=== PATIENT | female | born 1945 | race African-American/Black ===

== ENCOUNTER 2023-08-24 23:30 | Inpatient (IN) | payer MEDICARE, MEDICAID ==
[~2023-08-24] VITALS: Ht 157.5 cm; Wt 53.4 kg
[2023-08-25 00:31] LABS: Rapid Influenza A Negative (Negative); Rapid Influenza B Negative (Negative)
[2023-08-25 00:32] LABS: COVID19 ANTIGEN SOFIA FIA NEGATIVE (NEGATIVE)
[2023-08-25 00:38] LABS: Urine Bacteria FEW /hpf (None Seen); Urine Blood Negative /uL (Negative); Urine Clarity Clear (Clear); Urine Color Yellow (Yellow); Urine Hyaline Cast FEW /lpf (0 - 2); Urine Mucus FEW (None Seen); Urine Protein, UAD TRACE (Negative); Urine Specific Gravity 1.024 (1.001-1.035); Urine WBC 5 /hpf (0 - 5); Urine pH 5.5 (5.0-8.0)
[2023-08-25 00:57] LABS: Basophils # (auto) 0.1 10 ^3/uL (0-0.2); Basophils % (auto) 0.7 % (0.0-2.0); Eosinophils # (auto) 0.3 10 ^3/uL (0-0.8); Hemoglobin 12.2 g/dL (12.2-16.2); Lymphocytes # (auto) 1.6 10 ^3/uL (0.4-5.4); Neutrophils # (auto) 6.5 10 ^3/uL (1.6-8.6)
[2023-08-25 00:58] LABS: Eosinophils % (auto) 3.3 % (0.0-7.0); Hematocrit 37.9 % (36.0-46.0); Lymphocytes % (auto) 16.6 % (10.0-50.0); Mean Corpuscular Hemoglobin 28.1 pg (28.0-32.0); Mean Corpuscular Hgb Conc. 32.3 g/dL (32.0-36.0); Mean Corpuscular Volume 87.1 fL (80.0-100.0); Monocytes # (auto) 0.9 10 ^3/uL (0-1.3); Monocytes % (auto) 9.8 % (0.0-12.0); Neutrophils % (auto) 69.6 % (37.0-80.0); Red Blood Cells 4.35 10^6/uL (4.0-5.20); Red Cell Distribution Width 15.7 % (11.8-14.3); White Blood Cell 9.4 10^3/uL (4.4-10.8)
[2023-08-25 01:14] LABS: Alanine Aminotransferase 13 U/L (7-40); Albumin 4.7 g/dL (3.2-4.8); Alkaline Phosphatase 66 U/L (46-116); Anion Gap 8 (5-15); Aspartate Aminotransferase 23 U/L (13-40); BUN/Creatinine Ratio 17.2 (10.0-20.0); Bilirubin, Total 0.6 mg/dL (0.2-1.0); Blood Urea Nitrogen 17 mg/dL (9-23); Calcium 10.5 mg/dL (8.7-10.4); Carbon Dioxide 24 mmol/L (20-30); Chloride 101 mmol/L (98-107); Glucose 110 mg/dL (74-106); Potassium 4.3 mmol/L (3.5-5.1); Sodium 133 mmol/L (136-145); Total Protein 8.3 g/dL (5.7-8.2)
[2023-08-25 01:16] LABS: INR 1.17 (0.9-1.15); Prothrombin Time 12.2 sec (9.3-11.8)
[2023-08-25 01:22] LABS: Partial Thromboplastin Time < 20.0 SEC (24.5-34.5)
[2023-08-25] MEDS ORDERED: ASPirin 81 mg TAB PO ONE (03:00)
[2023-08-25] MEDS ORDERED: PANTOPRAZOLE 40 MG/10 ML VIAL INJ IV ONE (03:00)
[2023-08-25] MEDS ORDERED: FUROSEMIDE 20 MG/2 ML VIAL IV ONE (03:00)
[2023-08-25] MEDS ORDERED: ACETAMINOPHEN 325 MG TAB PO ONE (03:00)
[2023-08-25 04:41] VITALS: PULSE 92; RESP 16; O2SAT 100
[2023-08-25] MEDS ORDERED: ACETAMINOPHEN 325 MG TAB PO PRN (09:15)
[2023-08-25] MEDS ORDERED: ONDANSETRON HCL 4 MG/2 ML VIAL IV PRN (09:15)
[2023-08-25] MEDS ORDERED: HYDROcodone-ACET 5/325MG TAB PO PRN (09:15)
[2023-08-25] MEDS ORDERED: DOCUSATE SOD 100 MG CAP PO PRN (09:15)
[2023-08-25] MEDS ORDERED: CARVEDILOL 3.125 MG TAB PO SCH (10:00)
[2023-08-25] MEDS ORDERED: FAMOTIDINE (10MG/ML) 2ML VL IV SCH (10:00)
[2023-08-25] MEDS ORDERED: FUROSEMIDE 20 MG/2 ML VIAL IV SCH (10:00)
[2023-08-25] MEDS ORDERED: MORPHINE SULFATE INJ 2 MG/ml SYRG IV PRN (10:30)
[2023-08-25] MEDS ORDERED: NITROGLYCERIN 0.4 MG SL TAB SL PRN (10:30)
[2023-08-25] MEDS: ASPirin 81 mg TAB PO SCH (11:58)
[2023-08-25] MEDS: AZITHROMYCIN 500MG/ 250ML 250 ML IV SCH (12:43)
[2023-08-25] MEDS: SODIUM CHLOR 0.9% PF (SALINE LOCK) 10ML VIAL/SYR IV SCH ×2 (14:18→21:55)
[2023-08-25 17:28] VITALS: PULSE 98; RESP 17; O2SAT 98
[2023-08-25 17:32] VITALS: BP 122/55; PULSE 98; RESP 18; TEMP 97.7; O2SAT 99
[2023-08-25] MEDS ORDERED: METO-158 PO (18:33)
[2023-08-25] MEDS ORDERED: SPIR25TA8 PO (18:33)
[2023-08-25] MEDS ORDERED: SACU1TAB PO (18:33)
[2023-08-25] MEDS ORDERED: ASPI-498 PO (18:33)
[2023-08-25] MEDS ORDERED: NITR0.4S29 SL (18:33)
[2023-08-25] MEDS ORDERED: ATO40T PO (18:33)
[2023-08-25] MEDS ORDERED: AMLO1TAB22 PO (18:33)
[2023-08-25] MEDS: FUROSEMIDE 20 MG/2 ML VIAL IV SCH (18:48)
[2023-08-25 20:00] VITALS: PULSE 94; RESP 18; O2SAT 96
[2023-08-25 21:55] VITALS: BP 105/40
[2023-08-25] MEDS: SACUBITRIL-VALSARTAN 24mg/26mg TAB PO SCH (21:55)
[2023-08-25] MEDS: ATORVASTATIN 20 MG TAB PO SCH (21:55)
[2023-08-25 22:00] VITALS: BP 89/55; PULSE 50; RESP 17; TEMP 98.1; O2SAT 99
[2023-08-26] VITALS (7 sets, daily range): BP systolic 85–100; BP diastolic 45–60; PULSE 84–97; RESP 16–18; TEMP 97.7–98.2; O2SAT 97–100
[2023-08-26 05:49] LABS: Basophils # (auto) 0.1 10 ^3/uL (0-0.2); Basophils % (auto) 0.9 % (0.0-2.0); Eosinophils # (auto) 0.3 10 ^3/uL (0-0.8); Hematocrit 36.8 % (36.0-46.0); Lymphocytes % (auto) 15.4 % (10.0-50.0); Mean Corpuscular Hemoglobin 27.9 pg (28.0-32.0); Mean Corpuscular Hgb Conc. 32.6 g/dL (32.0-36.0); Mean Corpuscular Volume 85.4 fL (80.0-100.0); Monocytes # (auto) 0.8 10 ^3/uL (0-1.3); Monocytes % (auto) 12.1 % (0.0-12.0); Neutrophils # (auto) 4.5 10 ^3/uL (1.6-8.6); Neutrophils % (auto) 67.6 % (37.0-80.0); Red Cell Distribution Width 15.6 % (11.8-14.3); White Blood Cell 6.6 10^3/uL (4.4-10.8)
[2023-08-26] MEDS: SODIUM CHLOR 0.9% PF (SALINE LOCK) 10ML VIAL/SYR IV SCH ×3 (05:51→21:39)
[2023-08-26] MEDS: EMPAGLIFLOZIN 10 MG TAB PO SCH (05:51)
[2023-08-26] MEDS: FUROSEMIDE 20 MG/2 ML VIAL IV SCH ×2 (05:51→17:54)
[2023-08-26 06:09] LABS: Alanine Aminotransferase 13 U/L (7-40); Albumin 4.4 g/dL (3.2-4.8); Alkaline Phosphatase 57 U/L (46-116); Anion Gap 9 (5-15); Aspartate Aminotransferase 19 U/L (13-40); Bilirubin, Total 0.7 mg/dL (0.2-1.0); Blood Urea Nitrogen 16 mg/dL (9-23); Calcium 10.8 mg/dL (8.5-10.1); Carbon Dioxide 26 mmol/L (20-30); Chloride 102 mmol/L (98-107); Glucose 88 mg/dL (74-106); Potassium 4.2 mmol/L (3.5-5.1); Sodium 137 mmol/L (136-145); Total Protein 7.8 g/dL (5.7-8.2)
[2023-08-26] MEDS: ASPirin 81 mg TAB PO SCH (09:16)
[2023-08-26] MEDS: SACUBITRIL-VALSARTAN 24mg/26mg TAB PO SCH ×2 (09:17→21:35)
[2023-08-26] MEDS: ENOXAPARIN SOD 30 MG/0.3 ML SYRINGE SC SCH (09:18)
[2023-08-26] MEDS: AZITHROMYCIN 500MG/ 250ML 250 ML IV SCH (09:24)
[2023-08-26] MEDS: ATORVASTATIN 20 MG TAB PO SCH (21:35)
[2023-08-27 05:00] VITALS: BP 104/60; PULSE 91; RESP 18; TEMP 97.5; O2SAT 98
[2023-08-27] MEDS: FUROSEMIDE 20 MG/2 ML VIAL IV SCH ×2 (05:13→18:38)
[2023-08-27] MEDS: SODIUM CHLOR 0.9% PF (SALINE LOCK) 10ML VIAL/SYR IV SCH ×2 (05:13→14:00)
[2023-08-27 05:45] LABS: Chloride 102 mmol/L (98-107); Sodium 135 mmol/L (136-145)
[2023-08-27 05:46] LABS: Anion Gap 9 (5-15); Carbon Dioxide 24 mmol/L (20-30)
[2023-08-27 05:47] LABS: Calcium 10.9 mg/dL (8.5-10.1)
[2023-08-27 05:51] LABS: Glucose 95 mg/dL (74-106)
[2023-08-27 05:52] LABS: BUN/Creatinine Ratio 15.6 (10.0-20.0); Blood Urea Nitrogen 14 mg/dL (9-23)
[2023-08-27 06:06] LABS: Basophils # (auto) 0.1 10 ^3/uL (0-0.2); Basophils % (auto) 1.3 % (0.0-2.0); Eosinophils # (auto) 0.5 10 ^3/uL (0-0.8); Eosinophils % (auto) 7.3 % (0.0-7.0); Hematocrit 37.8 % (36.0-46.0); Hemoglobin 12.2 g/dL (12.2-16.2); Lymphocytes # (auto) 1.5 10 ^3/uL (0.4-5.4); Mean Corpuscular Hemoglobin 27.7 pg (28.0-32.0); Mean Corpuscular Hgb Conc. 32.3 g/dL (32.0-36.0); Mean Corpuscular Volume 85.8 fL (80.0-100.0); Monocytes % (auto) 14.8 % (0.0-12.0); Neutrophils # (auto) 3.5 10 ^3/uL (1.6-8.6); Neutrophils % (auto) 53.6 % (37.0-80.0); Nucleated Red Blood Cells % 0.1 %; Red Blood Cells 4.41 10^6/uL (4.0-5.20); Red Cell Distribution Width 15.5 % (11.8-14.3); White Blood Cell 6.4 10^3/uL (4.4-10.8)
[2023-08-27] MEDS: EMPAGLIFLOZIN 10 MG TAB PO SCH (06:36)
[2023-08-27 08:00] VITALS: BP 96/55; PULSE 77; RESP 17; TEMP 97.4; O2SAT 99
[2023-08-27 08:44] VITALS: BP 96/55; PULSE 91; RESP 17; TEMP 97.4; O2SAT 99
[2023-08-27] MEDS: ENOXAPARIN SOD 30 MG/0.3 ML SYRINGE SC SCH (09:26)
[2023-08-27] MEDS: AZITHROMYCIN 500MG/ 250ML 250 ML IV SCH (09:26)
[2023-08-27] MEDS: ASPirin 81 mg TAB PO SCH (09:27)
[2023-08-27] MEDS: SACUBITRIL-VALSARTAN 24mg/26mg TAB PO SCH (10:00)
[2023-08-27] MEDS ORDERED: FURO1TAB33 PO (11:12)
[2023-08-27 13:00] VITALS: BP 89/45; PULSE 89; RESP 16; TEMP 97.9; O2SAT 97
[2023-08-27 16:31] VITALS: BP 89/44; PULSE 94; RESP 14; TEMP 98.3; O2SAT 100
[2023-08-27 19:00] VITALS: BP 98/53; PULSE 94; RESP 17; TEMP 98.3; O2SAT 100
== END 2023-08-27 20:25 | disposition home or self-care (01) | DRG 137 ==
LOC: ER 23:30 → TELE 08-25 10:30 → TELE-CENTR 08-25 17:37
PROVIDERS: ADMIT Nurse Practitioner Family; ATTEND Internal Medicine Pulmonary Disease
DX: J15.69 Pneumonia due to other Gram-negative bacteria (principal); I21.A1 Myocardial infarction type 2; I50.43 Acute on chronic combined systolic (congestive) and diastolic (congestive) heart failure; I42.8 Other cardiomyopathies; I11.0 Hypertensive heart disease with heart failure; I95.9 Hypotension, unspecified; J15.8 Pneumonia due to other specified bacteria; I34.0 Nonrheumatic mitral (valve) insufficiency; Z20.822 Contact with and (suspected) exposure to COVID-19; I49.3 Ventricular premature depolarization; E78.5 Hyperlipidemia, unspecified; Z82.49 Family history of ischemic heart disease and other diseases of the circulatory system; Z90.710 Acquired absence of both cervix and uterus; Z88.2 Allergy status to sulfonamides; Z88.1 Allergy status to other antibiotic agents
CPT/HCPCS: 36415; 71250; 80048; 80053; 81001; 83735; 83880; 84484; 85025; 85610; 85730; 87081; 87426; 87804; 93005; 93306; C9113; G0378; J3490

== ENCOUNTER → 2023-08-30 | Outpatient (CLI) | payer MEDICAID, MEDICARE ==
[~2023-08-30] MED LIST: AMLO1TAB22 PO; ASPI-498 PO; ATO40T PO; FURO1TAB33 PO; METO-158 PO; NITR0.4S29 SL; SACU1TAB PO; SPIR25TA8 PO
[2023-08-30 11:52] LABS: Basophils # (auto) 0 10 ^3/uL (0-0.2); Basophils % (auto) 0.6 % (0.0-2.0); Eosinophils # (auto) 0.3 10 ^3/uL (0-0.8); Eosinophils % (auto) 6.1 % (0.0-7.0); Hematocrit 38.4 % (36.0-46.0); Hemoglobin 12.6 g/dL (12.2-16.2); Lymphocytes # (auto) 1.3 10 ^3/uL (0.4-5.4); Lymphocytes % (auto) 22.6 % (10.0-50.0); Mean Corpuscular Hemoglobin 28.3 pg (28.0-32.0); Mean Corpuscular Hgb Conc. 32.9 g/dL (32.0-36.0); Mean Corpuscular Volume 86.1 fL (80.0-100.0); Monocytes # (auto) 0.7 10 ^3/uL (0-1.3); Monocytes % (auto) 12.1 % (0.0-12.0); Neutrophils # (auto) 3.3 10 ^3/uL (1.6-8.6); Neutrophils % (auto) 58.6 % (37.0-80.0); Nucleated Red Blood Cells % 0.1 %; Red Blood Cells 4.46 10^6/uL (4.0-5.20); Red Cell Distribution Width 15.4 % (11.8-14.3); White Blood Cell 5.7 10^3/uL (4.4-10.8)
[2023-08-30 12:37] LABS: Alanine Aminotransferase 29 U/L (7-40); Alkaline Phosphatase 75 U/L (46-116); Anion Gap 8 (5-15); Aspartate Aminotransferase 31 U/L (13-40); BUN/Creatinine Ratio 26.4 (10.0-20.0); Bilirubin, Total 0.6 mg/dL (0.2-1.0); Blood Urea Nitrogen 23 mg/dL (9-23); Calcium 11.3 mg/dL (8.5-10.1); Carbon Dioxide 27 mmol/L (20-30); Chloride 100 mmol/L (98-107); Cholesterol 99 mg/dL (< 200); Glucose 95 mg/dL (74-106); HDL Cholesterol 41 mg/dL (40-59); LDL Cholesterol 41 mg/dL (< 100); Potassium 4.3 mmol/L (3.5-5.1); Sodium 135 mmol/L (136-145); Total Protein 8.8 g/dL (5.7-8.2); Triglycerides 66 mg/dL (< 150)
== END | disposition home or self-care (01) ==
LOC: LAB 11:21
PROVIDERS: ATTEND Internal Medicine
DX: Z13.820 Encounter for screening for osteoporosis (principal); Z00.01 Encounter for general adult medical examination with abnormal findings; I10 Essential (primary) hypertension; E78.5 Hyperlipidemia, unspecified; Z79.899 Other long term (current) drug therapy
CPT/HCPCS: 36415; 80053; 80061; 82306; 83036; 84439; 84443; 85025

== ENCOUNTER 2023-09-09 09:46 | Inpatient (IN) | payer MEDICARE, MEDICAID ==
[~2023-09-09] VITALS: Ht 160 cm; Wt 51.8 kg
[2023-09-09] VITALS (8 sets, daily range): BP systolic 102–111; BP diastolic 54–64; PULSE 90–119; RESP 16–20; TEMP 97.6–98.1; O2SAT 96–97
[2023-09-09 11:08] LABS: Hematocrit 38.5 % (36.0-46.0); Hemoglobin 12.2 g/dL (12.2-16.2); Mean Corpuscular Hemoglobin 27.3 pg (28.0-32.0); Mean Corpuscular Hgb Conc. 31.7 g/dL (32.0-36.0); Mean Corpuscular Volume 86.2 fL (80.0-100.0); Red Blood Cells 4.47 10^6/uL (4.0-5.20); Red Cell Distribution Width 15.9 % (11.8-14.3); White Blood Cell 7.7 10^3/uL (4.4-10.8)
[2023-09-09 11:26] LABS: Band Neutrophils % (manual) 0; Basophils % (manual) 0 (0.0-2.0); Blast Cells 0; Metamyelocytes % 0; Myelocytes % 0; Promyelocytes % 0; Reactive Lymphocytes 0
[2023-09-09 11:28] LABS: Alanine Aminotransferase 24 U/L (7-40); Albumin 4.6 g/dL (3.2-4.8); Alkaline Phosphatase 78 U/L (46-116); Anion Gap 9 (5-15); Aspartate Aminotransferase 27 U/L (13-40); BUN/Creatinine Ratio 22.4 (10.0-20.0); Blood Urea Nitrogen 17 mg/dL (9-23); Calcium 10.7 mg/dL (8.5-10.1); Carbon Dioxide 25 mmol/L (20-30); Chloride 105 mmol/L (98-107); Glucose 91 mg/dL (74-106); Potassium 3.6 mmol/L (3.5-5.1); Sodium 139 mmol/L (136-145)
[2023-09-09 11:29] LABS: Total Protein 8.2 g/dL (5.7-8.2)
[2023-09-09 11:55] LABS: INR 1.14 (0.9-1.15); Partial Thromboplastin Time 27.2 SEC (24.5-34.5); Prothrombin Time 11.9 sec (9.3-11.8)
[2023-09-09] MEDS ORDERED: FUROSEMIDE 40 MG/4 ML VIAL IV ONE (12:15)
[2023-09-09 12:32] LABS: Eosinophils % (manual) 3 (0-7); Lymphocytes % (manual) 23 (10.0-50.0); Monocytes % (manual) 7 (0-12)
[2023-09-09 12:33] LABS: Platelet Estimate Adequate
[2023-09-09] MEDS ORDERED: NITROGLYCERIN 0.4 MG SL TAB SL PRN (13:30)
[2023-09-09] MEDS ORDERED: MORPHINE SULFATE INJ 2 MG/ml SYRG IV PRN (13:30)
[2023-09-09] MEDS ORDERED: IPRATROPIUM BROM 0.5 MG/2.5ML INH SOL NEB PRN (13:30)
[2023-09-09] MEDS ORDERED: ALBUTEROL SULF 2.5 MG/0.5ML(0.5%) NEB SOLN NEB PRN (13:30)
[2023-09-09] MEDS ORDERED: ONDANSETRON HCL 4 MG/2 ML VIAL IV PRN (13:30)
[2023-09-09] MEDS ORDERED: DOCUSATE SOD 100 MG CAP PO PRN (13:30)
[2023-09-09] MEDS ORDERED: HYDROcodone-ACET 5/325MG TAB PO PRN (13:30)
[2023-09-09] MEDS: SODIUM CHLOR 0.9% PF (SALINE LOCK) 10ML VIAL/SYR IV SCH ×2 (14:21→21:10)
[2023-09-09 15:00] LABS: Urine Bacteria FEW /hpf (None Seen); Urine Blood Negative /uL (Negative); Urine Clarity Clear (Clear); Urine Color Colorless (Yellow); Urine Mucus FEW (None Seen); Urine Protein, UAD Negative (Negative); Urine Specific Gravity 1.009 (1.001-1.035); Urine Urobilinogen Normal (Negative); Urine WBC 1 /hpf (0 - 5)
[2023-09-09] MEDS ORDERED: SACUBITRIL-VALSARTAN 24mg/26mg TAB PO SCH (18:00)
[2023-09-09] MEDS: SACUBITRIL-VALSARTAN 24mg/26mg TAB PO SCH (18:20)
[2023-09-09] MEDS: FUROSEMIDE 20 MG/2 ML VIAL IV SCH (18:21)
[2023-09-10] VITALS (10 sets, daily range): BP systolic 85–104; BP diastolic 52–65; PULSE 90–104; RESP 16–20; TEMP 97.9–98.5; O2SAT 96–98
[2023-09-10 06:07] LABS: Basophils # (auto) 0 10 ^3/uL (0-0.2); Basophils % (auto) 0.5 % (0.0-2.0); Eosinophils # (auto) 0.3 10 ^3/uL (0-0.8); Eosinophils % (auto) 4.4 % (0.0-7.0); Hematocrit 37.2 % (36.0-46.0); Lymphocytes # (auto) 0.9 10 ^3/uL (0.4-5.4); Lymphocytes % (auto) 14.1 % (10.0-50.0); Mean Corpuscular Hemoglobin 27.9 pg (28.0-32.0); Mean Corpuscular Hgb Conc. 32.3 g/dL (32.0-36.0); Mean Corpuscular Volume 86.6 fL (80.0-100.0); Monocytes # (auto) 0.7 10 ^3/uL (0-1.3); Monocytes % (auto) 12.2 % (0.0-12.0); Neutrophils # (auto) 4.2 10 ^3/uL (1.6-8.6); Neutrophils % (auto) 68.8 % (37.0-80.0); Nucleated Red Blood Cells % 0.1 %; Red Blood Cells 4.29 10^6/uL (4.0-5.20); Red Cell Distribution Width 16.2 % (11.8-14.3); White Blood Cell 6.2 10^3/uL (4.4-10.8)
[2023-09-10 06:19] LABS: Alanine Aminotransferase 19 U/L (7-40); Albumin 4.4 g/dL (3.2-4.8); Alkaline Phosphatase 75 U/L (46-116); Anion Gap 8 (5-15); Aspartate Aminotransferase 27 U/L (13-40); BUN/Creatinine Ratio 17.9 (10.0-20.0); Bilirubin, Total 1.1 mg/dL (0.2-1.0); Blood Urea Nitrogen 14 mg/dL (9-23); Calcium 10.3 mg/dL (8.7-10.4); Carbon Dioxide 26 mmol/L (20-30); Chloride 104 mmol/L (98-107); Glucose 77 mg/dL (74-106); Potassium 3.9 mmol/L (3.5-5.1); Sodium 138 mmol/L (136-145); Total Protein 7.7 g/dL (5.7-8.2)
[2023-09-10] MEDS: FUROSEMIDE 20 MG/2 ML VIAL IV SCH ×2 (06:28→17:45)
[2023-09-10] MEDS: SODIUM CHLOR 0.9% PF (SALINE LOCK) 10ML VIAL/SYR IV SCH ×3 (06:28→22:00)
[2023-09-10] MEDS: EMPAGLIFLOZIN 10 MG TAB PO SCH (06:29)
[2023-09-10] MEDS: ASPirin-EC 81 mg tab PO SCH (09:08)
[2023-09-10] MEDS: ENOXAPARIN SOD 30 MG/0.3 ML SYRINGE SC SCH (09:09)
[2023-09-10] MEDS: SACUBITRIL-VALSARTAN 24mg/26mg TAB PO SCH ×2 (09:09→17:45)
[2023-09-10] MEDS: ATORVASTATIN 20 MG TAB PO SCH (09:09)
[2023-09-10] MEDS ORDERED: FUROSEMIDE 20 MG TAB PO SCH (10:00)
[2023-09-10] MEDS ORDERED: amLODIPine BESYLATE 5 MG TAB PO SCH (10:00)
[2023-09-10] MEDS ORDERED: METOPROLOL SUCCINATE XL 50 MG TAB PO SCH (10:00)
[2023-09-10 13:43] LABS: COVID19 ANTIGEN SOFIA FIA NEGATIVE (NEGATIVE)
[2023-09-11] VITALS (7 sets, daily range): BP systolic 87–100; BP diastolic 57–62; PULSE 83–102; RESP 17–19; TEMP 97.7–98; O2SAT 97–99
[2023-09-11] MEDS: SODIUM CHLOR 0.9% PF (SALINE LOCK) 10ML VIAL/SYR IV SCH ×2 (06:29→14:00)
[2023-09-11] MEDS: FUROSEMIDE 20 MG/2 ML VIAL IV SCH (06:35)
[2023-09-11] MEDS: EMPAGLIFLOZIN 10 MG TAB PO SCH (06:35)
[2023-09-11] MEDS: SACUBITRIL-VALSARTAN 24mg/26mg TAB PO SCH (08:08)
[2023-09-11] MEDS: ENOXAPARIN SOD 30 MG/0.3 ML SYRINGE SC SCH (10:18)
[2023-09-11] MEDS: ATORVASTATIN 20 MG TAB PO SCH (10:18)
[2023-09-11] MEDS: ASPirin-EC 81 mg tab PO SCH (10:18)
[2023-09-11] MEDS ORDERED: FURO1TAB31 PO (13:31)
[2023-09-11] MEDS ORDERED: EMPA1TAB PO (13:31)
[2023-09-20] MEDS ORDERED: EMPA1TAB PO (11:41)
[2023-09-20] MEDS ORDERED: SACU1TAB PO (11:41)
[2023-09-20] MEDS ORDERED: POTA-220 PO (11:41)
== END 2023-09-11 16:27 | disposition home or self-care (01) | DRG 133 ==
LOC: ER 09:46 → TELE 13:35 → TELE-CENTR 17:44
PROVIDERS: ADMIT Nurse Practitioner Family; ATTEND Internal Medicine Geriatric Medicine
DX: J96.21 Acute and chronic respiratory failure with hypoxia (principal); I21.A1 Myocardial infarction type 2; I50.43 Acute on chronic combined systolic (congestive) and diastolic (congestive) heart failure; I42.8 Other cardiomyopathies; I11.0 Hypertensive heart disease with heart failure; E78.5 Hyperlipidemia, unspecified; I34.0 Nonrheumatic mitral (valve) insufficiency; I49.3 Ventricular premature depolarization; Z20.822 Contact with and (suspected) exposure to COVID-19; Z79.84 Long term (current) use of oral hypoglycemic drugs; Z90.49 Acquired absence of other specified parts of digestive tract; Z82.49 Family history of ischemic heart disease and other diseases of the circulatory system; Z88.1 Allergy status to other antibiotic agents; Z90.710 Acquired absence of both cervix and uterus
CPT/HCPCS: 36415; 71045; 80053; 81001; 83880; 84484; 85007; 85025; 85027; 85610; 85730; 87081; 87426; 93005; 96374; 97163; 99291; G0378

== ENCOUNTER 2023-09-23 18:08 | Inpatient (IN) | payer MEDICARE, MEDICAID ==
[~2023-09-23] VITALS: Ht 154.9 cm; Wt 51.8 kg
[~2023-09-23 18:08] MED LIST changes: -AMLO1TAB22 PO; +EMPA1TAB PO; +FURO1TAB31 PO; -FURO1TAB33 PO; -METO-158 PO; +POTA-220 PO; -SPIR25TA8 PO
[2023-09-23 19:18] LABS: Basophils # (auto) 0.1 10 ^3/uL (0-0.2); Basophils % (auto) 0.8 % (0.0-2.0); Eosinophils # (auto) 0.1 10 ^3/uL (0-0.8); Eosinophils % (auto) 1.6 % (0.0-7.0); Hematocrit 37.4 % (36.0-46.0); Hemoglobin 11.6 g/dL (12.2-16.2); Lymphocytes # (auto) 1.2 10 ^3/uL (0.4-5.4); Lymphocytes % (auto) 16.3 % (10.0-50.0); Mean Corpuscular Hgb Conc. 31.1 g/dL (32.0-36.0); Mean Corpuscular Volume 86.9 fL (80.0-100.0); Monocytes # (auto) 0.7 10 ^3/uL (0-1.3); Monocytes % (auto) 9.7 % (0.0-12.0); Neutrophils # (auto) 5.1 10 ^3/uL (1.6-8.6); Neutrophils % (auto) 71.6 % (37.0-80.0); Nucleated Red Blood Cells % 0.1 %; Red Cell Distribution Width 16.2 % (11.8-14.3); White Blood Cell 7.2 10^3/uL (4.4-10.8)
[2023-09-23 19:33] LABS: INR 1.24 (0.9-1.15); Partial Thromboplastin Time 24.7 SEC (24.5-34.5); Prothrombin Time 12.8 sec (9.3-11.8)
[2023-09-23 19:38] LABS: Alanine Aminotransferase 20 U/L (7-40); Albumin 4.4 g/dL (3.2-4.8); Alkaline Phosphatase 74 U/L (46-116); Anion Gap 13 (5-15); Aspartate Aminotransferase 25 U/L (13-40); BUN/Creatinine Ratio 26.5 (10.0-20.0); Bilirubin, Total 0.9 mg/dL (0.2-1.0); Blood Urea Nitrogen 27 mg/dL (9-23); Calcium 10.5 mg/dL (8.7-10.4); Carbon Dioxide 22 mmol/L (20-30); Chloride 101 mmol/L (98-107); Glucose 152 mg/dL (74-106); Magnesium 2.5 mg/dL (1.6-2.6); Potassium 4.3 mmol/L (3.5-5.1); Sodium 136 mmol/L (136-145); Total Protein 7.5 g/dL (5.7-8.2)
[2023-09-23] MEDS ORDERED: ASPirin 81 mg TAB PO ONE (20:00)
[2023-09-23] MEDS ORDERED: FUROSEMIDE 40 MG/4 ML VIAL IV ONE (21:45)
[2023-09-23] MEDS ORDERED: IOHEXOL 350 MG/ML 100ML IJ ONE ×2 (22:25→23:02)
[2023-09-23] MEDS ORDERED: NITROGLYCERIN 0.4 MG SL TAB SL PRN ×2 (23:00)
[2023-09-23] MEDS ORDERED: DOCUSATE SOD 100 MG CAP PO PRN (23:00)
[2023-09-23] MEDS ORDERED: ONDANSETRON HCL 4 MG/2 ML VIAL IV PRN (23:00)
[2023-09-23] MEDS ORDERED: MORPHINE SULFATE INJ 2 MG/ml SYRG IV PRN (23:00)
[2023-09-23] MEDS ORDERED: HYDROmorphone HCL 2 MG/ML VL/or syr IV PRN (23:00)
[2023-09-23] MEDS ORDERED: ACETAMINOPHEN 325 MG TAB PO PRN (23:00)
[2023-09-23] MEDS ORDERED: AZITHROMYCIN 500MG/ 250ML 250 ML IV ONE (23:15)
[2023-09-23] MEDS ORDERED: cefTRIAXone 1GM/50ML D5W 50 ML IV ONE (23:15)
[2023-09-24] VITALS (9 sets, daily range): BP systolic 88–108; BP diastolic 55–60; PULSE 50–116; RESP 16–30; TEMP 97.7–98.7; O2SAT 94–100
[2023-09-24] MEDS ORDERED: IOHEXOL 350 MG/ML 100ML IJ ONE (03:47)
[2023-09-24] MEDS: SODIUM CHLOR 0.9% PF (SALINE LOCK) 10ML VIAL/SYR IV SCH ×3 (06:17→21:30)
[2023-09-24] MEDS: EMPAGLIFLOZIN 10 MG TAB PO SCH (06:18)
[2023-09-24] MEDS: FUROSEMIDE 40 MG/4 ML VIAL IV SCH ×2 (10:00→21:31)
[2023-09-24] MEDS: SACUBITRIL-VALSARTAN 24mg/26mg TAB PO SCH ×2 (10:00→21:31)
[2023-09-24] MEDS: ENOXAPARIN SOD 40 MG/0.4 ML SYRINGE SC SCH (10:38)
[2023-09-24] MEDS: ASPirin-EC 81 mg tab PO SCH (10:39)
[2023-09-24] MEDS: ATORVASTATIN 20 MG TAB PO SCH (10:43)
[2023-09-25] VITALS (8 sets, daily range): BP systolic 80–104; BP diastolic 51–65; PULSE 69–120; RESP 16–20; TEMP 97.3–98.1; O2SAT 94–99
[2023-09-25] MEDS: EMPAGLIFLOZIN 10 MG TAB PO SCH (06:16)
[2023-09-25] MEDS: SODIUM CHLOR 0.9% PF (SALINE LOCK) 10ML VIAL/SYR IV SCH ×3 (06:16→21:59)
[2023-09-25] MEDS: FUROSEMIDE 40 MG/4 ML VIAL IV SCH ×2 (10:00→21:59)
[2023-09-25] MEDS: SACUBITRIL-VALSARTAN 24mg/26mg TAB PO SCH ×2 (10:00→21:59)
[2023-09-25] MEDS: ENOXAPARIN SOD 40 MG/0.4 ML SYRINGE SC SCH (10:13)
[2023-09-25] MEDS: ATORVASTATIN 20 MG TAB PO SCH (10:13)
[2023-09-25] MEDS: ASPirin-EC 81 mg tab PO SCH (10:13)
[2023-09-25] MEDS: HYDROcodone-ACET 5/325MG TAB PO PRN (10:13)
[2023-09-25 21:21] LABS: COVID19 ANTIGEN SOFIA FIA NEGATIVE (NEGATIVE); Rapid Influenza A Negative (Negative); Rapid Influenza B Negative (Negative)
[2023-09-26] MEDS: HYDROcodone-ACET 5/325MG TAB PO PRN (04:06)
[2023-09-26 05:00] VITALS: BP 119/72; PULSE 109; RESP 18; TEMP 97.4; O2SAT 97
[2023-09-26] MEDS: SODIUM CHLOR 0.9% PF (SALINE LOCK) 10ML VIAL/SYR IV SCH ×2 (05:53→14:00)
[2023-09-26] MEDS: EMPAGLIFLOZIN 10 MG TAB PO SCH (05:53)
[2023-09-26 08:00] VITALS: PULSE 105
[2023-09-26 09:00] VITALS: BP 100/55; PULSE 78; RESP 20; TEMP 97.5; O2SAT 96
[2023-09-26 09:34] LABS: Hepatitis B Surface Antigen Negative (Negative)
[2023-09-26] MEDS: FUROSEMIDE 40 MG/4 ML VIAL IV SCH (10:00)
[2023-09-26] MEDS: SACUBITRIL-VALSARTAN 24mg/26mg TAB PO SCH (10:00)
[2023-09-26 10:12] LABS: Hepatitis C Antibody Negative (Negative)
[2023-09-26] MEDS: ASPirin-EC 81 mg tab PO SCH (11:01)
[2023-09-26] MEDS: ATORVASTATIN 20 MG TAB PO SCH (11:01)
[2023-09-26] MEDS: ENOXAPARIN SOD 40 MG/0.4 ML SYRINGE SC SCH (11:05)
[2023-09-26 13:00] VITALS: BP 109/61; PULSE 109; RESP 20; TEMP 97.6; O2SAT 96
[2023-09-26 16:21] VITALS: BP 107/58; PULSE 105; RESP 20; TEMP 97.2; O2SAT 96
== END 2023-09-26 16:46 | disposition home or self-care (01) | DRG 137 ==
LOC: EDBD 18:08 → ER 18:08 → TELE 22:59 → TELE-CENTR 09-24 09:36
PROVIDERS: ADMIT Internal Medicine; ATTEND Family Medicine
DX: J15.69 Pneumonia due to other Gram-negative bacteria (principal); I21.A1 Myocardial infarction type 2; I50.43 Acute on chronic combined systolic (congestive) and diastolic (congestive) heart failure; I42.8 Other cardiomyopathies; I11.0 Hypertensive heart disease with heart failure; I25.10 Atherosclerotic heart disease of native coronary artery without angina pectoris; J15.9 Unspecified bacterial pneumonia; I47.19 Other supraventricular tachycardia; E78.00 Pure hypercholesterolemia, unspecified; Z20.822 Contact with and (suspected) exposure to COVID-19; Z88.2 Allergy status to sulfonamides; Z82.49 Family history of ischemic heart disease and other diseases of the circulatory system; Z88.1 Allergy status to other antibiotic agents; Z90.710 Acquired absence of both cervix and uterus; Z90.49 Acquired absence of other specified parts of digestive tract
CPT/HCPCS: 36415; 71045; 71275; 80053; 83735; 83880; 84439; 84443; 84484; 85025; 85610; 85730; 86803; 87040; 87081; 87340; 87426; 87804; 93005; 96365; 96368; G0378